=== PATIENT | female | born 1965 | race Caucasian/White ===

== ENCOUNTER 2018-12-09 08:15 | Day surgery (SDC) | payer OTHER ==
[2018-12-09 08:23] LABS: Specific Gravity 1.015 (1.005-1.030); Urine Appearance CLEAR; Urine Bilirubin NEGATIVE (NEG); Urine Blood NEGATIVE (NEG); Urine Color YELLOW; Urine Glucose NEGATIVE (NEG); Urine Protein NEGATIVE (NEG); Urine Specific Gravity 1.015 (1.005-1.030); Urine Urobilinogen 0.2 mg/dL (0.2-1.0); Urine pH 5.5 (5.0-7.0)
[2018-12-09 08:24] LABS: Urine Microscopic Reflex NO UMIC
[2018-12-09 08:26] LABS: Absolute Monocytes 0.3 K/uL (0.1-1.3); Basophils % 1.3 % (0-1.3); Eosinophils % 3.2 % (0-4.4); Hematocrit 40.9 % (36.0-45.0); MPV 9.4 fL (7.6-11.3); Monocytes % 9.3 % (3.3-12.3); RBC Red Blood Cell Count 4.66 M/uL (3.86-4.86)
[2018-12-09] MEDS ORDERED: PROPOFOL 200 MG/20 ML VIAL IV ONE (08:32)
[2018-12-09] MEDS ORDERED: ROCURONIUM 50 MG/5 ML VIAL IV ONE ×2 (08:33→10:41)
[2018-12-09] MEDS ORDERED: GLYCOPYRROLATE 0.2 MG/ML SYR ONE ×2 (08:33→12:09)
[2018-12-09] MEDS ORDERED: LIDOCAINE 2% MPF 5 ML VIAL ONE (08:33)
[2018-12-09] MEDS ORDERED: NEOSTIGMINE 1 MG/ML -10 ML VIAL ONE (08:34)
[2018-12-09] MEDS ORDERED: FENTANYL CITR 250 MCG/5 ML ONE (08:34)
[2018-12-09] MEDS ORDERED: ONDANSETRON 4 MG/2 ML VIAL ONE ×3 (08:34→15:53)
[2018-12-09] MEDS ORDERED: MIDAZOLAM HCL 2 MG/2 ML INJ ONE (08:35)
[2018-12-09] MEDS ORDERED: DEXAMETHASONE 4 MG/ML VIAL ONE (08:35)
[2018-12-09] MEDS ORDERED: Mastisol Adhesive Liq ONE (08:46)
[2018-12-09] MEDS ORDERED: Ringers Lactate 1,000 ML IV ONE ×3 (08:46→08:47)
[2018-12-09] MEDS ORDERED: GENTAMICIN SULF 80 MG/2ML INJ ONE (08:46)
[2018-12-09] MEDS ORDERED: NS 0.9% VIAL 20 ML ONE ×2 (08:46→11:47)
[2018-12-09] MEDS ORDERED: CEFAZOLIN SODIUM 1 GM/VIAL ONE (08:46)
[2018-12-09] MEDS ORDERED: CEFAZOLIN/SWI 1gm 1 GM/10 ML SYR ONE (08:47)
[2018-12-09] MEDS ORDERED: BACITRACIN 50000 UNIT VIAL ONE (08:47)
[2018-12-09] MEDS ORDERED: SCOPOLAMINE HYDROBROMIDE PATCH TD ONE (09:31)
--- NOTE | 2018-12-09 09:52 | RAD REPORT ---
EXAM DESCRIPTION: RAD - Chest Pa And Lat (2 Views) - 12/09/2018 8:11 am CLINICAL HISTORY: Preop chest, pending breast surgery COMPARISON: None. TECHNIQUE: PA and lateral views of the chest were obtained. FINDINGS: The lungs are clear. Heart size is normal and central vasculature is within normal limit s. No pleural effusion or pneumothorax seen. No acute bony finding noted. No aortic abnormality. IMPRESSION: No acute cardiopulmonary process.
[2018-12-09] MEDS ORDERED: EPHEDRINE SULF 50 MG/ML VIAL ONE (10:40)
[2018-12-09] MEDS ORDERED: Phenylephrine HCl 10 MG/ML 1 ML VIAL ONE (11:47)
[2018-12-09] MEDS: HYDROMORPHONE HCL 2 MG/ML inj ONE ×3 (14:22→14:35)
[2018-12-09] MEDS ORDERED: CODEINE 30MG/APAP 300MG TAB ONE (16:26)
--- NOTE | 2018-12-09 19:47 | OP ---
Surgeon: Akash Park MD Channel Specialist: Severo. Preoperative Diagnosis: Breast descent. Postoperative Diagnosis: Breast descent. Procedure Performed: Lift. Anesthesia: General. Procedure In Detail: After satisfactory general anesthesia, the chest was prepped with DuraPrep, dry sterile drapes applied in the usual manner. A 42 template was used to outline the right and left ar eola. A decision was made and transverse curvilinear inferior incisions were made. The intervening skin was de-epithelialized with dermabrader and EpiCut. The transverse incision was made. The flap was thinned to 1 cm and elevated cephalad toward the sternum, clavicle, and the anterior axillary jair e. Then the inferior incision was made and then the de-epithelialized tissue was formed into a cone with 2-0 PDS sutures. The straps were elevated from base of the cone at 12 o'clock and 1:30 and 3 o' clock position of right breast, mirror imaging the left. This allowed the straps to be woven in and out the pectoralis major muscle and back to the base of cone, back to pectoralis major muscle, and ev entually tied to themselves with 2-0 PDS. This was done to the 12 o'clock and 1:30 strap. The 3 o'c lock strap was sewn to the sternum at 3 o'clock position with 2-0 Ethibond. Left side done in mirror image manner. The patient was sat up, after the wounds were temporarily closed. Dog ears were rese cted laterally and then the patient returned to supine position, irrigated with antibiotic solution. A #10 ANUEL was brought out of the axilla, sewn in place with 2-0 silk and the wound was closed in laye rs with 3-0 Vicryl subcu, 3-0 PDS in running subcuticular, tied from medial to lateral and lateral to medial, tied in the vertical meridian of the breast. Both sides were done simultaneously. After th is was done, the patient was sat up. Site for new nipple-areolar complex was marked out as per 42 te mplate. The incision was made and the nipples delivered and then sewn with interrupted 4-0 PDS follo wed by 4-0 PDS running subcuticular. Dressings of tincture of benzoin, Steri-Strips, 5x5s, fluffs an d Manuel wrap. The patient tolerated the procedure well and returned to recovery room. The amount rodriguez alma from the right breast was 12 g and left was 28 g. MERA/TRAVIS Voice ID: [id number] Report ID: [id number]
--- NOTE | 2018-12-11 10:27 | EKG ---
Test Date: 2018-12-09 Test Time: 06:58:01 Tax Compliance Agent: AZRA MEASUREMENT RESULTS: Intervals: Rate: 73 IL: 164 QRSD: 68 QT: 368 QTc: 405 [place]: P: 69 IL: 164 QRS: 46 T: 54 INTERPRETIVE STATEMENTS: Normal sinus rhythm Normal ECG No previous ECG available for comparison Electronically Signed On 12-09-18 12:40:01 CDT by Clive Martinez
== END 2018-12-09 17:50 | disposition home or self-care (01) ==
LOC: OR 08:15
PROVIDERS: ATTEND Specialist
PROC: 0HSV0ZZ Reposition Bilateral Breast, Open Approach (ICD-10-PCS; principal; 2018-12-09 09:00)
DX: N64.81 Ptosis of breast (principal)
CPT/HCPCS: 36415; 71046; 81003; 81025; 82962; 85025; 88305; 93005; J0690; J1170; J1580; J2250; J2370; J2405; J2704; J2710; J3010